=== PATIENT | female | born 1995 | race Caucasian/White ===

== ENCOUNTER 2023-07-08 06:41 | Emergency (ER) | payer OTHER, BC, SELFPAY ==
[2023-07-08 06:48] VITALS: BP 129/86; PULSE 87; RESP 18; TEMP 36.3; O2SAT 99; BMI 34.2
[2023-07-08 07:11] LABS: Appearance Urine Cloudy (Clear); Bilirubin Urine Negative (Negative); Blood Urine 3+ (Negative); Color Urine Dark yellow (Yellow); Glucose Urine Negative (Negative); Ketones Urine Negative (Negative); Leukocyte Esterase Urine Negative (Negative); Nitrite Urine Negative (Negative); Protein Urine Negative (Negative); Specific Gravity Urine >= 1.030 (1.000-1.030); Urobilinogen Urine 0.2 (0.2-1.0)
--- NOTE | 2023-07-08 07:19 | CT_ITS ---
Final Report Patient: LAVONNE AVILA Facility:?[facility] Patient ID:?[id number] Site Patient ID:?[id number] Site :?[id number] Study:?CT Abdomen/Pelvis W/ 110CC ISOVUE 370-07/08/2023 7:57:37 AM Ordering Physician:JONAS Final Report: INDICATION: Right lower quadrant abdominal pain COMPARISON: None TECHNIQUE: CT examination of the abdomen and pelvis was performed following the uneventful intravenous administration of 110 cc of Isovue 370. Thin section axial images were obtained from the lung bases through the pubic symphysis. Oral contrast was not administered. Please note that all CT scans at this facility use dose modulation, iterative reconstruction, and/or weight-based dosing when appropriate to reduce radiation dose to as low as reasonably achievable. FINDINGS: LUNG BASES: The lung bases as visualized appear normal.The heart size is normal at the lung bases. LIVER/BILIARY SYSTEM:The liver is normal in size and configuration. There is no focal mass and there is no intra- or extra hepatic biliary ductal dilatation.Hepatic steatosis. Normal-appearing gallbladder ADRENALS: Normal KIDNEYS, URETERS and BLADDER:Normal-sized kidneys. No intrarenal calculi. No hydronephrosis or hydroureter. Pelvic calcifications are noted bilaterally. They are probably phleboliths. There is a solitary on the right that is very near the ureter. This measures about 2.5 millimeters. While I do not believe this is in the ureter, correlate with urinalysis. SPLEEN:Normal appearance. PANCREAS: Appears normal. RETROPERITONEUM and MESENTERY: There is no mass, adenopathy or aortic aneurysm. GASTROINTESTINAL SYSTEM: There is no evidence of diverticulitis, colitis, mechanical obstruction, or appendicitis. The small bowel as visualized appears normal.The appendix is well seen and appears normal. PELVIS: No mass, adenopathy or free fluid.No adnexal mass OSSEOUS STRUCTURES and ABDOMINAL WALL: There is an age-appropriate appearance of the osseous structures.No significant abdominal wall defect. OTHER: No free fluid or free air. IMPRESSION: 1. Pelvic calcifications probably phleboliths. There is a 2.5 millimeter calcification in the right pelvis which is probably not within the as described above. 2. The appendix is well seen and appears normal. 3. No adnexal mass. 4. Hepatic steatosis Please note that all CT scans at this facility use dose modulation, iterative reconstruction, and/or weight-based dosing when appropriate to reduce radiation dose to as low as reasonably achievable. Dictated by Raymundo Cancino MD @ 07/08/2023 8:09:53 AM (Electronic Signature)
[2023-07-08 07:31] LABS: Lactate* 0.9 mmol/L (0.5-1.9)
[2023-07-08 07:32] LABS: Basophils Percent Auto 0.3 % (0.0-3.0); Eosinophils Percent Auto 0.7 % (0.0-7.0); Hematocrit 39.6 % (33.0-51.0); Hemoglobin* 12.7 gm/dL (12.0-16.0); Immature Granulocytes Pct Auto 0.2 %; Lymphocytes Percent Auto 11.6 % (20-44); Mean Corpuscular HGB Conc 32 gm/dL (32-36); Mean Corpuscular Hemoglobin 28 pg (26-34); Mean Corpuscular Volume 86 fL (80-100); Monocytes Percent Auto 6.4 % (0.0-11.0); Neutrophils Percent Auto 80.8 % (42.0-72.0); Platelet Count* 379 K/uL (140-440); RDW Coefficient of Variation % 13.3 % (11.5-15.5); Red Blood Count 4.61 m/uL (4.00-5.20); White Blood Count* 11.68 K/uL (4.50-11.00)
[2023-07-08 07:32] LABS: Bacteria Urine Few; RBC Urine 50-100 (0-2); Squamous Epithelial Cell Urine Moderate (None-Few); WBC Urine 0-2 (0-5)
[2023-07-08 07:35] LABS: Slide Review Reflex No
[2023-07-08 07:42] LABS: Ur HCG Qualitative* Negative (Negative)
[2023-07-08 07:47] LABS: Albumin* 4.4 g/dL (3.3-5.0); Chloride* 107 mmol/L (96-114)
[2023-07-08 07:48] LABS: Potassium* 4.2 mmol/L (3.6-5.1); Sodium* 138 mmol/L (135-149)
[2023-07-08 07:50] LABS: Creatinine* 0.8 mg/dL (0.5-1.5); Est. Creatinine Clearance* 104.67; Estimated Glomerular Filt Rate 102 ml/min
[2023-07-08 07:51] LABS: Alanine Aminotransferase* 20 U/L (4-35); Alkaline Phosphatase* 69 U/L (40-150); Anion Gap 7 mEq/L (7-15); Aspartate Amino Transferase* 40 U/L (12-35); Blood Urea Nitrogen* 13 mg/dL (5-24); Calcium* 9.1 mg/dL (8.4-10.6); Carbon Dioxide* 24 mmol/L (20-32); Glucose* 112 mg/dL (60-115); Lipase* 63 U/L (23-300); Total Protein* 7.7 g/dL (6.0-8.3)
[2023-07-08 07:53] LABS: C Reactive Protein* 1.3 mg/dL (0.5-1.0)
--- NOTE | 2023-07-08 07:55 | ED_ITS ---
HPI - Abdominal Pain General Chief Complaint: Abdominal Pain <Esha Camargo MD - Last Filed: 07/11/23 23:57> Stated Complaint: R side abdominal pain <Esha Camargo MD - Last Filed: 07/11/23 23:57> Time Seen by Provider: 07/08/23 07:05 <Esha Camargo MD - Last Filed: 07/11/23 23:57> Source: patient <Esha Camargo MD - Last Filed: 07/11/23 23:57> Mode of arrival: ambulatory <Esha Camargo MD - Last Filed: 07/11/23 23:57> Limitations: no limitations <Esha Camargo MD - Last Filed: 07/11/23 23:57> History of Present Illness HPI narrative: 27-year-old female presents the emergency department with right lower quadrant abdominal pain, near the inguinal region. This is been present for the past 3-4 hours. Comes in waves. Pain is associated with loose stools, crampy in nature. Does not radiate. Tried taking Tylenol at 2:00 a.m. when the pain awoke her from sleep, 1000 mg. Did not seem to improve her symptoms. Pain is becoming more persistent, accompanied by nausea and sweating but no vomiting. She is on her menstrual cycle, wonders if this could be related to her endometriosis pain. No history of hernias. No prior history of kidney stones but does have a family history of kidney stones in her father. She has a history of PCOS but he has never required any type of drainage or surgery for large ovarian cysts. No recent pelvic ultrasound or imaging but did have a laparoscopic procedure to reduce endometriosis in the last few years. No abdominal trauma, no rectal bleeding. No fever. Denies a prior history of similar symptoms. She is on her period, so will be difficult to tell if she has any hematuria. No flank pain. Past medical history notable for PCOS, endometriosis. Her surgical history is notable for endometriosis surgery but she still has all of her remaining pelvic organs. Just had a facial surgery at age 1. Only long-term medication is metformin. Nonsmoker. ROS notable for the abdominal symptoms as described above, otherwise denies times 12 systems. <Esha Camargo MD - Last Filed: 07/11/23 23:57> Related Data Home Medications: Home Medications Medication Instructions Recorded Confirmed cabergoline 0.5 mg tablet 0.5 mg PO 01/17/23 01/17/23 metformin 500 mg tablet,extended 2,000 mg PO QPM 01/17/23 01/17/23 release 24 hr naltrexone 50 mg tablet 25 mg PO QPM 01/17/23 01/17/23 progesterone micronized 100 mg 25 mg PO QAM 01/17/23 01/17/23 capsule Previous Rx's Medication Instructions Recorded ketorolac 10 mg tablet 10 mg PO Q6H PRN pain 5 days #20 07/08/23 tabs <Esha Camargo MD - Last Filed: 07/11/23 23:57> Allergies/Adverse Reactions: Allergies Allergy/AdvReac Type Severity Reaction Status Date / Time No Known Drug Allergies Allergy Verified 07/08/23 07:52 <Esha Camargo MD - Last Filed: 07/11/23 23:57> PFS PFSH Social History: Social History Smoking Status: Never smoker How often do you have a drink containing alcohol: never AUDIT-C Alcohol total score: 0 Non-prescribed substance use: denies use <Esha Camargo MD - Last Filed: 07/11/23 23:57> Exam Const: Vital Signs, click to edit/add: Vital Signs - 24 hr 07/08/23 06:48 07/08/23 09:27 Temperature 97.3 F L Pulse Rate [Left P ulse Oximeter] 87 82 Respiratory Rate 18 18 Blood Pressure [Ri ght Upper Arm] 129/86 118/74 Pulse Oximetry 99 100 Oxygen Delivery Me thod Room Air Room Air <Esha Camargo MD - Last Filed: 07/11/23 23:57> Vital Signs, click to edit/add: Vital Signs - 24 hr 07/08/23 06:48 07/08/23 09:27 Temperature 97.3 F L Pulse Rate [Left P ulse Oximeter] 87 82 Respiratory Rate 18 18 Blood Pressure [Ri ght Upper Arm] 129/86 118/74 Pulse Oximetry 99 100 Oxygen Delivery Me thod Room Air Room Air <Jennifer Garza MD - Last Filed: 07/08/23 09:45> Documenting provider has reviewed patient's vital signs: yes <Esha Camargo MD - Last Filed: 07/11/23 23:57> Common normals: no apparent distress and alert <Esha Camargo MD - Last Filed: 07/11/23 23:57> General appearance: cooperative and well kempt <Esha Camargo MD - Last Filed: 07/11/23 23:57> Other: Appears mildly uncomfortable but very cooperative and friendly <Esha Camargo MD - Last Filed: 07/11/23 23:57> HENMT: Common normals: normocephalic <Esha Camargo MD - Last Filed: 07/11/23 23:57> Head and scalp: normocephalic <Esha Camargo MD - Last Filed: 07/11/23 23:57> Face and sinus: normal facial exam <Esha Camargo MD - Last Filed: 07/11/23 23:57> Mouth: oral and palatal mucosa normal <Esha Camargo MD - Last Filed: 07/11/23 23:57> Throat: posterior oropharynx normal <Esha Camargo MD - Last Filed: 23:57> Eye: Common normals: conjunctivae normal <Esha Camargo MD - Last Filed: 07/11/23 23:57> General eye: normal appearance of both eyes <Esha Camargo MD - Last Filed: 07/11/23 23:57> Conjunctiva: conjunctiva(e) normal <Esha Camargo MD - Last Filed: 07/11/23 23:57> Neck & C-Spine: Common normals: no lymphadenopathy <Esha Camargo MD - Last Filed: 07/11/23 23:57> General: normal visual inspection <Esha Camargo MD - Last Filed: 07/11/23 23:57> Resp: Common normals: normal respiratory effort, no use of accessory muscles and clear to auscultation bilaterally <Esha Camargo MD - Last Filed: 07/11/23 23:57> Effort & inspection: able to speak in complete sentences <Esha Camargo MD - Last Filed: 07/11/23 23:57> Auscultation: clear to auscultation bilaterally <Esha Camargo MD - Last Filed: 07/11/23 23:57> Cardio: Common normals: regular rate, regular rhythm, S1 normal heart sound, S2 normal heart sound and no murmurs <Esha Camargo MD - Last Filed: 07/11/23 23:57> Rate: regular rate <Esha Camargo MD - Last Filed: 07/11/23 23:57> Rhythm: regular rhythm <Esha Camargo MD - Last Filed: 07/11/23 23:57> Heart sounds: S1 normal and S2 normal <Esha Camargo MD - Last Filed: 07/11/23 23:57> GI: Common normals: Normal to inspection, nondistended, normoactive bowel sounds present, soft to palpation, no hepatosplenomegaly and no masses <Esha Camargo MD - Last Filed: 07/11/23 23:57> Palpation: soft and no hepatosplenomegaly <Esha Camargo MD - Last Filed: 07/11/23 23:57> Other: Tender palpation of the right lower quadrant but very right lower pelvic area. I do not detect any inguinal or femoral hernia. No rebound tenderness, guarding or mass. <Esha Camargo MD - Last Filed: 07/11/23 23:57> : Common normals: no CVA tenderness <MD Hansa Mina Last Filed: 07/11/23 23:57> Bladder/kidney exam: no CVA tenderness <Esha Camargo MD - Last Filed: 07/11/23 23:57> Back & Pelvis: Common normals: no CVA tenderness <Esha Camargo MD - Last Filed: 07/11/23 23:57> Extremity: Common normals: normal to inspection and normal capillary refill <Esha Camargo MD - Last Filed: 07/11/23 23:57> Neuro: Sensorium/orientation: alert <Esha Camargo MD - Last Filed: 07/11/23 23:57> Speech: speech normal <Esha Camargo MD - Last Filed: 07/11/23 23:57> Gait (neuro): normal gait <Esha Camargo MD - Last Filed: 07/11/23 23:57> Motor exam: strength 5/5 throughout <Esha Camargo MD - Last Filed: 07/11/23 23:57> Psych: Common normals: speech normal <MD Hansa Mina Last Filed: 07/11/23 23:57> Appearance: well kempt <Esha Camargo MD - Last Filed: 07/11/23 23:57> Attitude: engaged <Esha Camargo MD - Last Filed: 07/11/23 23:57> Activity/motor behavior: appropriate eye contact <Esha Camargo MD - Last Filed: 07/11/23 23:57> Speech: normal speech <Esha Camargo MD - Last Filed: 07/11/23 23:57> Insight: insight good <MD Hansa Mina Last Filed: 07/11/23 23:57> Judgement: judgment good <Esha Camargo MD - Last Filed: 07/11/23 23:57 > Skin: Common normals: no rashes or lesions noted <MD Hansa Mina Last Filed: 07/11/23 23:57> General skin exam: no rashes or lesions noted <Esha Camargo MD - Last Filed: 07/11/23 23:57> Course Course ED Course: Differential diagnosis including appendicitis, hernia, colitis, ovarian pathology, endometriosis. Most likely differential diagnosis is a right-sided UVJ stone based on presentation. No features a fever, tachycardia or hypotension. Counseled patient that her urinalysis will contain blood in this will make interpretation a little bit more difficult. For stone, we do prefer to do the scan without contrast but since her pain is so low and there are many other things I would want to look foreign would not want to risk duplicate radiation, I recommended that we do the scan with contrast, rationale discussed. Will place IV, she declines pain medication or nausea medication at this time, counseled that she can update the nurse's if she has changed her mind with that. I do recommend some basic labs and CT scan. Await findings. Will be handing over care to my in coming day shift partner. <Esha Camargo MD - Last Filed: 07/11/23 23:57> Reevaluation(s) Time of Reevaluation #1: 09:41 <Jennifer Garza MD - Last Filed: 07/08/23 09:45> Reevaluation #1: Reviewed CT report with patient. She does state there is a strong family history of kidney stones, her dad has had many. We really have no other etiology to explain her sudden onset of pain. I do not feel that she needs to proceed with ultrasound imaging at this time. She is aware to return if symptoms are worsening. We are going to treat clinically that this is potentially a kidney stone, her menstrual cycle is confounding the ability to get a meaningful urinalysis. We have reviewed use of oral Toradol for pain outpatient. <Jennifer Garza MD - Last Filed: 07/08/23 09:45> Vital Signs Vital signs: Initial Vital Signs Temperature 97.3 F L 07/08/23 06:48 Temperature Source Temporal Artery Scan 07/08/23 06:48 Pulse Rate 87 07/08/23 06:48 Pulse Rhythm Regular 07/08/23 06:48 Respiratory Rate 18 07/08/23 06:48 Blood Pressure 129/86 07/08/23 06:48 Blood Pressure Mean 100 07/08/23 06:48 Blood Pressure Position Sitting 07/08/23 06:48 Pulse Oximetry 99 07/08/23 06:48 Oxygen Delivery Method Room Air 07/08/23 06:48 Vital Signs Temperature 97.3 F L 07/08/23 06:48 Pulse Rate 87 07/08/23 06:48 Respiratory Rate 18 07/08/23 06:48 Blood Pressure 129/86 07/08/23 06:48 Pulse Oximetry 99 07/08/23 06:48 Oxygen Delivery Method Room Air 07/08/23 06:48 Temperature 97.3 F L 07/08/23 06:48 Pulse Rate 82 07/08/23 09:27 Respiratory Rate 18 07/08/23 09:27 Blood Pressure 118/74 07/08/23 09:27 Pulse Oximetry 100 07/08/23 09:27 Oxygen Delivery Method Room Air 07/08/23 09:27 <Esha Camargo MD - Last Filed: 07/11/23 23:57> Initial Vital Signs Temperature 97.3 F L 07/08/23 06:48 Temperature Source Temporal Artery Scan 07/08/23 06:48 Pulse Rate 87 07/08/23 06:48 Pulse Rhythm Regular 07/08/23 06:48 Respiratory Rate 18 07/08/23 06:48 Blood Pressure 129/86 07/08/23 06:48 Blood Pressure Mean 100 07/08/23 06:48 Blood Pressure Position Sitting 07/08/23 06:48 Pulse Oximetry 99 07/08/23 06:48 Oxygen Delivery Method Room Air 07/08/23 06:48 Vital Signs Temperature 97.3 F L 07/08/23 06:48 Pulse Rate 87 07/08/23 06:48 Respiratory Rate 18 07/08/23 06:48 Blood Pressure 129/86 07/08/23 06:48 Pulse Oximetry 99 07/08/23 06:48 Oxygen Delivery Method Room Air 07/08/23 06:48 Temperature 97.3 F L 07/08/23 06:48 Pulse Rate 82 07/08/23 09:27 Respiratory Rate 18 07/08/23 09:27 Blood Pressure 118/74 07/08/23 09:27 Pulse Oximetry 100 07/08/23 09:27 Oxygen Delivery Method Room Air 07/08/23 09:27 <Jennifer Garza MD - Last Filed: 07/08/23 09:45> MDM - Abdominal Pain Lab Data Attestation: I reviewed the patient's lab results. <Jennifer Garza MD - Last Filed: 07/08/23 09:45> Labs: Lab Results 07/08/23 07/08/23 07/08/23 Range/Units 07:00 07:00 07:00 WBC (4.50-11.00) K/uL RBC (4.00-5.20) m/uL Hgb (12.0-16.0) gm/dL Hct (33.0-51.0) % MCV (80-100) fL MCH (26-34) pg MCHC (32-36) gm/dL RDW Coeff of [place] (11.5-15.5) % Plt Count (140-440) K/uL Neut % (Auto) (42.0-72.0) % Lymph % (Auto) (20-44) % [place] % (Auto) (0.0-11.0) % Eos % (Auto) (0.0-7.0) % Baso % (Auto) (0.0-3.0) % Neut # (Auto) (1.7-7.0) K/uL Lymph # (Auto) (0.90-2.90) K/uL [place] # (Auto) (0.00-0.90) K/UL Eos # (Auto) (0.00-0.50) K/uL Baso # (Auto) (0.00-0.30) K/uL Abs Immat Gran (auto) (0.00-0.30) K/uL Imm/Tot Granulo (auto) % Sodium (135-149) mmol/L Potassium (3.6-5.1) mmol/L Chloride (96-114) mmol/L Carbon Dioxide (20-32) mmol/L Anion Gap (7-15) mEq/L BUN (5-24) mg/dL Creatinine (0.5-1.5) mg/dL Estimated Creat Clear Estimated GFR ml/min Glucose (60-115) mg/dL Lactate (0.5-1.9) mmol/L Calcium (8.4-10.6) mg/dL Total Bilirubin (0.1-1.5) mg/dL AST (12-35) U/L ALT (4-35) U/L Alkaline Phosphatase (40-150) U/L C-Reactive Protein (0.5-1.0) mg/dL Total Protein (6.0-8.3) g/dL Albumin (3.3-5.0) g/dL Lipase (23-300) U/L Urine Color Dark yellow Cancelled (Yellow) Urine Appearance Cloudy A Cancelled (Clear) Urine pH 6.0 (5.0-8.5) Ur Specific [place] (1.000-1.030) Urine Protein (Negative) Urine Glucose (UA) (Negative) Urine Ketones (Negative) Urine Blood (Negative) Urine Nitrite (Negative) Urine Bilirubin (Negative) Urine Urobilinogen (0.2-1.0) Ur Leukocyte Esterase (Negative) Urine RBC (0-2) Urine WBC (0-5) Urine WBC Clumps Ur Squamous Epith Cells (None-Few) [place] Biurate Crystals Calcium Carbonate Cryst Calcium Phosphate Cryst Calcium Oxalate Crystal Cystine Crystals Uric Acid Crystals Triple Phos Crystals Sulfur Crystals Cholesterol Crystals Tyrosine Crystals Hippuric Acid Crystals Amorphous Sediment Other Sediment Urine Bacteria (None) Fatty Casts Hyaline Casts Fine Granular Casts Coarse Granular Casts Waxy Casts RBC Casts WBC Casts Other Casts Urine Starch Urine Mucus Urine Trichomonas Urine Yeast Urine HCG, Qual (Negative) 07/08/23 07/08/23 07/08/23 Range/Units 07:00 07:00 07:00 WBC (4.50-11.00) K/uL RBC (4.00-5.20) m/uL Hgb (12.0-16.0) gm/dL Hct (33.0-51.0) % MCV (80-100) fL MCH (26-34) pg MCHC (32-36) gm/dL RDW Coeff of [place]aseli (11.5-15.5) % Plt Count (140-440) K/uL Neut % (Auto) (42.0-72.0) % Lymph % (Auto) (20-44) % [place] % (Auto) (0.0-11.0) % Eos % (Auto) (0.0-7.0) % Baso % (Auto) (0.0-3.0) % Neut # (Auto) (1.7-7.0) K/uL Lymph # (Auto) (0.90-2.90) K/uL [place] # (Auto) (0.00-0.90) K/UL Eos # (Auto) (0.00-0.50) K/uL Baso # (Auto) (0.00-0.30) K/uL Abs Immat Gran (auto) (0.00-0.30) K/uL Imm/Tot Granulo (auto) % Sodium (135-149) mmol/L Potassium (3.6-5.1) mmol/L Chloride (96-114) mmol/L Carbon Dioxide (20-32) mmol/L Anion Gap (7-15) mEq/L BUN (5-24) mg/dL Creatinine (0.5-1.5) mg/dL Estimated Creat Clear Estimated GFR ml/min Glucose (60-115) mg/dL Lactate (0.5-1.9) mmol/L Calcium (8.4-10.6) mg/dL Total Bilirubin (0.1-1.5) mg/dL AST (12-35) U/L ALT (4-35) U/L Alkaline Phosphatase (40-150) U/L C-Reactive Protein (0.5-1.0) mg/dL Total Protein (6.0-8.3) g/dL Albumin (3.3-5.0) g/dL Lipase (23-300) U/L Urine Color (Yellow) Urine Appearance (Clear) Urine pH Cancelled (5.0-8.5) Ur Specific [place] >= 1.030 Cancelled (1.000-1.030) Urine Protein Negative Cancelled (Negative) Urine Glucose (UA) Negative (Negative) Urine Ketones (Negative) Urine Blood (Negative) Urine Nitrite (Negative) Urine Bilirubin (Negative) Urine Urobilinogen (0.2-1.0) Ur Leukocyte Esterase (Negative) Urine RBC (0-2) Urine WBC (0-5) Urine WBC Clumps Ur Squamous Epith Cells (None-Few) [place] Biurate Crystals Calcium Carbonate Cryst Calcium Phosphate Cryst Calcium Oxalate Crystal Cystine Crystals Uric Acid Crystals Triple Phos Crystals Sulfur Crystals Cholesterol Crystals Tyrosine Crystals Hippuric Acid Crystals Amorphous Sediment Other Sediment Urine Bacteria (None) Fatty Casts Hyaline Casts Fine Granular Casts Coarse Granular Casts Waxy Casts RBC Casts WBC Casts Other Casts Urine Starch Urine Mucus Urine Trichomonas Urine Yeast Urine HCG, Qual (Negative) 07/08/23 07/08/23 07/08/23 Range/Units 07:00 07:00 07:00 WBC (4.50-11.00) K/uL RBC (4.00-5.20) m/uL Hgb (12.0-16.0) gm/dL Hct (33.0-51.0) % MCV (80-100) fL MCH (26-34) pg MCHC (32-36) gm/dL RDW Coeff of [place] (11.5-15.5) % Plt Count (140-440) K/uL Neut % (Auto) (42.0-72.0) % Lymph % (Auto) (20-44) % [place] % (Auto) (0.0-11.0) % Eos % (Auto) (0.0-7.0) % Baso % (Auto) (0.0-3.0) % Neut # (Auto) (1.7-7.0) K/uL Lymph # (Auto) (0.90-2.90) K/uL [place] # (Auto) (0.00-0.90) K/UL Eos # (Auto) (0.00-0.50) K/uL Baso # (Auto) (0.00-0.30) K/uL Abs Immat Gran (auto) (0.00-0.30) K/uL Imm/Tot Granulo (auto) % Sodium (135-149) mmol/L Potassium (3.6-5.1) mmol/L Chloride (96-114) mmol/L Carbon Dioxide (20-32) mmol/L Anion Gap (7-15) mEq/L BUN (5-24) mg/dL Creatinine (0.5-1.5) mg/dL Estimated Creat Clear Estimated GFR ml/min Glucose (60-115) mg/dL Lactate (0.5-1.9) mmol/L Calcium (8.4-10.6) mg/dL Total Bilirubin (0.1-1.5) mg/dL AST (12-35) U/L ALT (4-35) U/L Alkaline Phosphatase (40-150) U/L C-Reactive Protein (0.5-1.0) mg/dL Total Protein (6.0-8.3) g/dL Albumin (3.3-5.0) g/dL Lipase (23-300) U/L Urine Color (Yellow) Urine Appearance (Clear) Urine pH (5.0-8.5) Ur Specific [place] (1.000-1.030) Urine Protein (Negative) Urine Glucose (UA) Cancelled (Negative) Urine Ketones Negative Cancelled (Negative) Urine Blood 3+ A Cancelled (Negative) Urine Nitrite Negative (Negative) Urine Bilirubin (Negative) Urine Urobilinogen (0.2-1.0) Ur Leukocyte Esterase (Negative) Urine RBC (0-2) Urine WBC (0-5) Urine WBC Clumps Ur Squamous Epith Cells (None-Few) [place] Biurate Crystals Calcium Carbonate Cryst Calcium Phosphate Cryst Calcium Oxalate Crystal Cystine Crystals Uric Acid Crystals Triple Phos Crystals Sulfur Crystals Cholesterol Crystals Tyrosine Crystals Hippuric Acid Crystals Amorphous Sediment Other Sediment Urine Bacteria (None) Fatty Casts Hyaline Casts Fine Granular Casts Coarse Granular Casts Waxy Casts RBC Casts WBC Casts Other Casts Urine Starch Urine Mucus Urine Trichomonas Urine Yeast Urine HCG, Qual (Negative) 07/08/23 07/08/23 07/08/23 Range/Units 07:00 07:00 07:00 WBC (4.50-11.00) K/uL RBC (4.00-5.20) m/uL Hgb (12.0-16.0) gm/dL Hct (33.0-51.0) % MCV (80-100) fL MCH (26-34) pg MCHC (32-36) gm/dL RDW Coeff of [place]eli (11.5-15.5) % Plt Count (140-440) K/uL Neut % (Auto) (42.0-72.0) % Lymph % (Auto) (20-44) % [place] % (Auto) (0.0-11.0) % Eos % (Auto) (0.0-7.0) % Baso % (Auto) (0.0-3.0) % Neut # (Auto) (1.7-7.0) K/uL Lymph # (Auto) (0.90-2.90) K/uL [place] # (Auto) (0.00-0.90) K/UL Eos # (Auto) (0.00-0.50) K/uL Baso # (Auto) (0.00-0.30) K/uL Abs Immat Gran (auto) (0.00-0.30) K/uL Imm/Tot Granulo (auto) % Sodium (135-149) mmol/L Potassium (3.6-5.1) mmol/L Chloride (96-114) mmol/L Carbon Dioxide (20-32) mmol/L Anion Gap (7-15) mEq/L BUN (5-24) mg/dL Creatinine (0.5-1.5) mg/dL Estimated Creat Clear Estimated GFR ml/min Glucose (60-115) mg/dL Lactate (0.5-1.9) mmol/L Calcium (8.4-10.6) mg/dL Total Bilirubin (0.1-1.5) mg/dL AST (12-35) U/L ALT (4-35) U/L Alkaline Phosphatase (40-150) U/L C-Reactive Protein (0.5-1.0) mg/dL Total Protein (6.0-8.3) g/dL Albumin (3.3-5.0) g/dL Lipase (23-300) U/L Urine Color (Yellow) Urine Appearance (Clear) Urine pH (5.0-8.5) Ur Specific [place] (1.000-1.030) Urine Protein (Negative) Urine Glucose (UA) (Negative) Urine Ketones (Negative) Urine Blood (Negative) Urine Nitrite Cancelled (Negative) Urine Bilirubin Negative Cancelled (Negative) Urine Urobilinogen 0.2 Cancelled (0.2-1.0) Ur Leukocyte Esterase Negative (Negative) Urine RBC (0-2) Urine WBC (0-5) Urine WBC Clumps Ur Squamous Epith Cells (None-Few) [place] Biurate Crystals Calcium Carbonate Cryst Calcium Phosphate Cryst Calcium Oxalate Crystal Cystine Crystals Uric Acid Crystals Triple Phos Crystals Sulfur Crystals Cholesterol Crystals Tyrosine Crystals Hippuric Acid Crystals Amorphous Sediment Other Sediment Urine Bacteria (None) Fatty Casts Hyaline Casts Fine Granular Casts Coarse Granular Casts Waxy Casts RBC Casts WBC Casts Other Casts Urine Starch Urine Mucus Urine Trichomonas Urine Yeast Urine HCG, Qual (Negative) 07/08/23 07/08/23 07/08/23 Range/Units 07:00 07:00 07:00 WBC (4.50-11.00) K/uL RBC (4.00-5.20) m/uL Hgb (12.0-16.0) gm/dL Hct (33.0-51.0) % MCV (80-100) fL MCH (26-34) pg MCHC (32-36) gm/dL RDW Coeff of [place] (11.5-15.5) % Plt Count (140-440) K/uL Neut % (Auto) (42.0-72.0) % Lymph % (Auto) (20-44) % [place] % (Auto) (0.0-11.0) % Eos % (Auto) (0.0-7.0) % Baso % (Auto) (0.0-3.0) % Neut # (Auto) (1.7-7.0) K/uL Lymph # (Auto) (0.90-2.90) K/uL [place] # (Auto) (0.00-0.90) K/UL Eos # (Auto) (0.00-0.50) K/uL Baso # (Auto) (0.00-0.30) K/uL Abs Immat Gran (auto) (0.00-0.30) K/uL Imm/Tot Granulo (auto) % Sodium (135-149) mmol/L Potassium (3.6-5.1) mmol/L Chloride (96-114) mmol/L Carbon Dioxide (20-32) mmol/L Anion Gap (7-15) mEq/L BUN (5-24) mg/dL Creatinine (0.5-1.5) mg/dL Estimated Creat Clear Estimated GFR ml/min Glucose (60-115) mg/dL Lactate (0.5-1.9) mmol/L Calcium (8.4-10.6) mg/dL Total Bilirubin (0.1-1.5) mg/dL AST (12-35) U/L ALT (4-35) U/L Alkaline Phosphatase (40-150) U/L C-Reactive Protein (0.5-1.0) mg/dL Total Protein (6.0-8.3) g/dL Albumin (3.3-5.0) g/dL Lipase (23-300) U/L Urine Color (Yellow) Urine Appearance (Clear) Urine pH (5.0-8.5) Ur Specific [place] (1.000-1.030) Urine Protein (Negative) Urine Glucose (UA) (Negative) Urine Ketones (Negative) Urine Blood (Negative) Urine Nitrite (Negative) Urine Bilirubin (Negative) Urine Urobilinogen (0.2-1.0) Ur Leukocyte Esterase Cancelled (Negative) Urine RBC 50-100 A Cancelled (0-2) Urine WBC 0-2 Cancelled (0-5) Urine WBC Clumps Cancelled Ur Squamous Epith Cells Moderate A (None-Few) [place] Biurate Crystals Calcium Carbonate Cryst Calcium Phosphate Cryst Calcium Oxalate Crystal Cystine Crystals Uric Acid Crystals Triple Phos Crystals Sulfur Crystals Cholesterol Crystals Tyrosine Crystals Hippuric Acid Crystals Amorphous Sediment Other Sediment Urine Bacteria (None) Fatty Casts Hyaline Casts Fine Granular Casts Coarse Granular Casts Waxy Casts RBC Casts WBC Casts Other Casts Urine Starch Urine Mucus Urine Trichomonas Urine Yeast Urine HCG, Qual (Negative) 07/08/23 07/08/23 07/08/23 Range/Units 07:00 07:00 07:25 WBC 11.68 H (4.50-11.00) K/uL RBC 4.61 (4.00-5.20) m/uL Hgb 12.7 (12.0-16.0) gm/dL Hct 39.6 (33.0-51.0) % MCV 86 (80-100) fL MCH 28 (26-34) pg MCHC 32 (32-36) gm/dL RDW Coeff of [place] 13.3 (11.5-15.5) % Plt Count 379 (140-440) K/uL Neut % (Auto) 80.8 H (42.0-72.0) % Lymph % (Auto) 11.6 L (20-44) % [place] % (Auto) 6.4 (0.0-11.0) % Eos % (Auto) 0.7 (0.0-7.0) % Baso % (Auto) 0.3 (0.0-3.0) % Neut # (Auto) 9.40 H (1.7-7.0) K/uL Lymph # (Auto) 1.40 (0.90-2.90) K/uL [place] # (Auto) 0.70 (0.00-0.90) K/UL Eos # (Auto) 0.10 (0.00-0.50) K/uL Baso # (Auto) 0.00 (0.00-0.30) K/uL Abs Immat Gran (auto) 0.00 (0.00-0.30) K/uL Imm/Tot Granulo (auto) 0.2 % Sodium 138 (135-149) mmol/L Potassium 4.2 (3.6-5.1) mmol/L Chloride 107 (96-114) mmol/L Carbon Dioxide 24 (20-32) mmol/L Anion Gap 7 (7-15) mEq/L BUN 13 (5-24) mg/dL Creatinine 0.8 (0.5-1.5) mg/dL Estimated Creat Clear 104.67 Estimated GFR 102 ml/min Glucose 112 (60-115) mg/dL Lactate 0.9 (0.5-1.9) mmol/L Calcium 9.1 (8.4-10.6) mg/dL Total Bilirubin 1.0 (0.1-1.5) mg/dL AST 40 H (12-35) U/L ALT 20 (4-35) U/L Alkaline Phosphatase 69 (40-150) U/L C-Reactive Protein 1.3 H (0.5-1.0) mg/dL Total Protein 7.7 (6.0-8.3) g/dL Albumin 4.4 (3.3-5.0) g/dL Lipase 63 (23-300) U/L Urine Color (Yellow) Urine Appearance (Clear) Urine pH (5.0-8.5) Ur Specific [place] (1.000-1.030) Urine Protein (Negative) Urine Glucose (UA) (Negative) Urine Ketones (Negative) Urine Blood (Negative) Urine Nitrite (Negative) Urine Bilirubin (Negative) Urine Urobilinogen (0.2-1.0) Ur Leukocyte Esterase (Negative) Urine RBC (0-2) Urine WBC (0-5) Urine WBC Clumps Ur Squamous Epith Cells Cancelled (None-Few) [place] Biurate Crystals Cancelled Calcium Carbonate Cryst Cancelled Calcium Phosphate Cryst Cancelled Calcium Oxalate Crystal Cancelled Cystine Crystals Cancelled Uric Acid Crystals Cancelled Triple Phos Crystals Cancelled Sulfur Crystals Cancelled Cholesterol Crystals Cancelled Tyrosine Crystals Cancelled Hippuric Acid Crystals Cancelled Amorphous Sediment Cancelled Other Sediment Cancelled Urine Bacteria Few A Cancelled (None) Fatty Casts Cancelled Hyaline Casts Cancelled Fine Granular Casts Cancelled Coarse Granular Casts Cancelled Waxy Casts Cancelled RBC Casts Cancelled WBC Casts Cancelled Other Casts Cancelled Urine Starch Cancelled Urine Mucus Cancelled Urine Trichomonas Cancelled Urine Yeast Cancelled Urine HCG, Qual Negative (Negative) <Esha Camargo MD - Last Filed: 07/11/23 23:57> Lab Results 07/08/23 07/08/23 07/08/23 Range/Units 07:00 07:00 07:00 WBC (4.50-11.00) K/uL RBC (4.00-5.20) m/uL Hgb (12.0-16.0) gm/dL Hct (33.0-51.0) % MCV (80-100) fL MCH (26-34) pg MCHC (32-36) gm/dL RDW Coeff of Araseli (11.5-15.5) % Plt Count (140-440) K/uL Neut % (Auto) (42.0-72.0) % Lymph % (Auto) (20-44) % [place] % (Auto) (0.0-11.0) % Eos % (Auto) (0.0-7.0) % Baso % (Auto) (0.0-3.0) % Neut # (Auto) (1.7-7.0) K/uL Lymph # (Auto) (0.90-2.90) K/uL [place] # (Auto) (0.00-0.90) K/UL Eos # (Auto) (0.00-0.50) K/uL Baso # (Auto) (0.00-0.30) K/uL Abs Immat Gran (auto) (0.00-0.30) K/uL Imm/Tot Granulo (auto) % Sodium (135-149) mmol/L Potassium (3.6-5.1) mmol/L Chloride (96-114) mmol/L Carbon Dioxide (20-32) mmol/L Anion Gap (7-15) mEq/L BUN (5-24) mg/dL Creatinine (0.5-1.5) mg/dL Estimated Creat Clear Estimated GFR ml/min Glucose (60-115) mg/dL Lactate (0.5-1.9) mmol/L Calcium (8.4-10.6) mg/dL Total Bilirubin (0.1-1.5) mg/dL AST (12-35) U/L ALT (4-35) U/L Alkaline Phosphatase (40-150) U/L C-Reactive Protein (0.5-1.0) mg/dL Total Protein (6.0-8.3) g/dL Albumin (3.3-5.0) g/dL Lipase (23-300) U/L Urine Color Dark yellow Cancelled (Yellow) Urine Appearance Cloudy A Cancelled (Clear) Urine pH 6.0 (5.0-8.5) Ur Specific [place] (1.000-1.030) Urine Protein (Negative) Urine Glucose (UA) (Negative) Urine Ketones (Negative) Urine Blood (Negative) Urine Nitrite (Negative) Urine Bilirubin (Negative) Urine Urobilinogen (0.2-1.0) Ur Leukocyte Esterase (Negative) Urine RBC (0-2) Urine WBC (0-5) Urine WBC Clumps Ur Squamous Epith Cells (None-Few) [place] Biurate Crystals Calcium Carbonate Cryst Calcium Phosphate Cryst Calcium Oxalate Crystal Cystine Crystals Uric Acid Crystals Triple Phos Crystals Sulfur Crystals Cholesterol Crystals Tyrosine Crystals Hippuric Acid Crystals Amorphous Sediment Other Sediment Urine Bacteria (None) Fatty Casts Hyaline Casts Fine Granular Casts Coarse Granular Casts Waxy Casts RBC Casts WBC Casts Other Casts Urine Starch Urine Mucus Urine Trichomonas Urine Yeast Urine HCG, Qual (Negative) 07/08/23 07/08/23 07/08/23 Range/Units 07:00 07:00 07:00 WBC (4.50-11.00) K/uL RBC (4.00-5.20) m/uL Hgb (12.0-16.0) gm/dL Hct (33.0-51.0) % MCV (80-100) fL MCH (26-34) pg MCHC (32-36) gm/dL RDW Coeff of Araseli (11.5-15.5) % Plt Count (140-440) K/uL Neut % (Auto) (42.0-72.0) % Lymph % (Auto) (20-44) % [place] % (Auto) (0.0-11.0) % Eos % (Auto) (0.0-7.0) % Baso % (Auto) (0.0-3.0) % Neut # (Auto) (1.7-7.0) K/uL Lymph # (Auto) (0.90-2.90) K/uL [place] # (Auto) (0.00-0.90) K/UL Eos # (Auto) (0.00-0.50) K/uL Baso # (Auto) (0.00-0.30) K/uL Abs Immat Gran (auto) (0.00-0.30) K/uL Imm/Tot Granulo (auto) % Sodium (135-149) mmol/L Potassium (3.6-5.1) mmol/L Chloride (96-114) mmol/L Carbon Dioxide (20-32) mmol/L Anion Gap (7-15) mEq/L BUN (5-24) mg/dL Creatinine (0.5-1.5) mg/dL Estimated Creat Clear Estimated GFR ml/min Glucose (60-115) mg/dL Lactate (0.5-1.9) mmol/L Calcium (8.4-10.6) mg/dL Total Bilirubin (0.1-1.5) mg/dL AST (12-35) U/L ALT (4-35) U/L Alkaline Phosphatase (40-150) U/L C-Reactive Protein (0.5-1.0) mg/dL Total Protein (6.0-8.3) g/dL Albumin (3.3-5.0) g/dL Lipase (23-300) U/L Urine Color (Yellow) Urine Appearance (Clear) Urine pH Cancelled (5.0-8.5) Ur Specific [place] >= 1.030 Cancelled (1.000-1.030) Urine Protein Negative Cancelled (Negative) Urine Glucose (UA) Negative (Negative) Urine Ketones (Negative) Urine Blood (Negative) Urine Nitrite (Negative) Urine Bilirubin (Negative) Urine Urobilinogen (0.2-1.0) Ur Leukocyte Esterase (Negative) Urine RBC (0-2) Urine WBC (0-5) Urine WBC Clumps Ur Squamous Epith Cells (None-Few) [place] Biurate Crystals Calcium Carbonate Cryst Calcium Phosphate Cryst Calcium Oxalate Crystal Cystine Crystals Uric Acid Crystals Triple Phos Crystals Sulfur Crystals Cholesterol Crystals Tyrosine Crystals Hippuric Acid Crystals Amorphous Sediment Other Sediment Urine Bacteria (None) Fatty Casts Hyaline Casts Fine Granular Casts Coarse Granular Casts Waxy Casts RBC Casts WBC Casts Other Casts Urine Starch Urine Mucus Urine Trichomonas Urine Yeast Urine HCG, Qual (Negative) 07/08/23 07/08/23 07/08/23 Range/Units 07:00 07:00 07:00 WBC (4.50-11.00) K/uL RBC (4.00-5.20) m/uL Hgb (12.0-16.0) gm/dL Hct (33.0-51.0) % MCV (80-100) fL MCH (26-34) pg MCHC (32-36) gm/dL RDW Coeff of [place]eli (11.5-15.5) % Plt Count (140-440) K/uL Neut % (Auto) (42.0-72.0) % Lymph % (Auto) (20-44) % [place] % (Auto) (0.0-11.0) % Eos % (Auto) (0.0-7.0) % Baso % (Auto) (0.0-3.0) % Neut # (Auto) (1.7-7.0) K/uL Lymph # (Auto) (0.90-2.90) K/uL [place] # (Auto) (0.00-0.90) K/UL Eos # (Auto) (0.00-0.50) K/uL Baso # (Auto) (0.00-0.30) K/uL Abs Immat Gran (auto) (0.00-0.30) K/uL Imm/Tot Granulo (auto) % Sodium (135-149) mmol/L Potassium (3.6-5.1) mmol/L Chloride (96-114) mmol/L Carbon Dioxide (20-32) mmol/L Anion Gap (7-15) mEq/L BUN (5-24) mg/dL Creatinine (0.5-1.5) mg/dL Estimated Creat Clear Estimated GFR ml/min Glucose (60-115) mg/dL Lactate (0.5-1.9) mmol/L Calcium (8.4-10.6) mg/dL Total Bilirubin (0.1-1.5) mg/dL AST (12-35) U/L ALT (4-35) U/L Alkaline Phosphatase (40-150) U/L C-Reactive Protein (0.5-1.0) mg/dL Total Protein (6.0-8.3) g/dL Albumin (3.3-5.0) g/dL Lipase (23-300) U/L Urine Color (Yellow) Urine Appearance (Clear) Urine pH (5.0-8.5) Ur Specific [place] (1.000-1.030) Urine Protein (Negative) Urine Glucose (UA) Cancelled (Negative) Urine Ketones Negative Cancelled (Negative) Urine Blood 3+ A Cancelled (Negative) Urine Nitrite Negative (Negative) Urine Bilirubin (Negative) Urine Urobilinogen (0.2-1.0) Ur Leukocyte Esterase (Negative) Urine RBC (0-2) Urine WBC (0-5) Urine WBC Clumps Ur Squamous Epith Cells (None-Few) [place] Biurate Crystals Calcium Carbonate Cryst Calcium Phosphate Cryst Calcium Oxalate Crystal Cystine Crystals Uric Acid Crystals Triple Phos Crystals Sulfur Crystals Cholesterol Crystals Tyrosine Crystals Hippuric Acid Crystals Amorphous Sediment Other Sediment Urine Bacteria (None) Fatty Casts Hyaline Casts Fine Granular Casts Coarse Granular Casts Waxy Casts RBC Casts WBC Casts Other Casts Urine Starch Urine Mucus Urine Trichomonas Urine Yeast Urine HCG, Qual (Negative) 07/08/23 07/08/23 07/08/23 Range/Units 07:00 07:00 07:00 WBC (4.50-11.00) K/uL RBC (4.00-5.20) m/uL Hgb (12.0-16.0) gm/dL Hct (33.0-51.0) % MCV (80-100) fL MCH (26-34) pg MCHC (32-36) gm/dL RDW Coeff of [place]eli (11.5-15.5) % Plt Count (140-440) K/uL Neut % (Auto) (42.0-72.0) % Lymph % (Auto) (20-44) % [place] % (Auto) (0.0-11.0) % Eos % (Auto) (0.0-7.0) % Baso % (Auto) (0.0-3.0) % Neut # (Auto) (1.7-7.0) K/uL Lymph # (Auto) (0.90-2.90) K/uL [place] # (Auto) (0.00-0.90) K/UL Eos # (Auto) (0.00-0.50) K/uL Baso # (Auto) (0.00-0.30) K/uL Abs Immat Gran (auto) (0.00-0.30) K/uL Imm/Tot Granulo (auto) % Sodium (135-149) mmol/L Potassium (3.6-5.1) mmol/L Chloride (96-114) mmol/L Carbon Dioxide (20-32) mmol/L Anion Gap (7-15) mEq/L BUN (5-24) mg/dL Creatinine (0.5-1.5) mg/dL Estimated Creat Clear Estimated GFR ml/min Glucose (60-115) mg/dL Lactate (0.5-1.9) mmol/L Calcium (8.4-10.6) mg/dL Total Bilirubin (0.1-1.5) mg/dL AST (12-35) U/L ALT (4-35) U/L Alkaline Phosphatase (40-150) U/L C-Reactive Protein (0.5-1.0) mg/dL Total Protein (6.0-8.3) g/dL Albumin (3.3-5.0) g/dL Lipase (23-300) U/L Urine Color (Yellow) Urine Appearance (Clear) Urine pH (5.0-8.5) Ur Specific [place] (1.000-1.030) Urine Protein (Negative) Urine Glucose (UA) (Negative) Urine Ketones (Negative) Urine Blood (Negative) Urine Nitrite Cancelled (Negative) Urine Bilirubin Negative Cancelled (Negative) Urine Urobilinogen 0.2 Cancelled (0.2-1.0) Ur Leukocyte Esterase Negative (Negative) Urine RBC (0-2) Urine WBC (0-5) Urine WBC Clumps Ur Squamous Epith Cells (None-Few) [place] Biurate Crystals Calcium Carbonate Cryst Calcium Phosphate Cryst Calcium Oxalate Crystal Cystine Crystals Uric Acid Crystals Triple Phos Crystals Sulfur Crystals Cholesterol Crystals Tyrosine Crystals Hippuric Acid Crystals Amorphous Sediment Other Sediment Urine Bacteria (None) Fatty Casts Hyaline Casts Fine Granular Casts Coarse Granular Casts Waxy Casts RBC Casts WBC Casts Other Casts Urine Starch Urine Mucus Urine Trichomonas Urine Yeast Urine HCG, Qual (Negative) 07/08/23 07/08/23 07/08/23 Range/Units 07:00 07:00 07:00 WBC (4.50-11.00) K/uL RBC (4.00-5.20) m/uL Hgb (12.0-16.0) gm/dL Hct (33.0-51.0) % MCV (80-100) fL MCH (26-34) pg MCHC (32-36) gm/dL RDW Coeff of [place] (11.5-15.5) % Plt Count (140-440) K/uL Neut % (Auto) (42.0-72.0) % Lymph % (Auto) (20-44) % [place] % (Auto) (0.0-11.0) % Eos % (Auto) (0.0-7.0) % Baso % (Auto) (0.0-3.0) % Neut # (Auto) (1.7-7.0) K/uL Lymph # (Auto) (0.90-2.90) K/uL [place] # (Auto) (0.00-0.90) K/UL Eos # (Auto) (0.00-0.50) K/uL Baso # (Auto) (0.00-0.30) K/uL Abs Immat Gran (auto) (0.00-0.30) K/uL Imm/Tot Granulo (auto) % Sodium (135-149) mmol/L Potassium (3.6-5.1) mmol/L Chloride (96-114) mmol/L Carbon Dioxide (20-32) mmol/L Anion Gap (7-15) mEq/L BUN (5-24) mg/dL Creatinine (0.5-1.5) mg/dL Estimated Creat Clear Estimated GFR ml/min Glucose (60-115) mg/dL Lactate (0.5-1.9) mmol/L Calcium (8.4-10.6) mg/dL Total Bilirubin (0.1-1.5) mg/dL AST (12-35) U/L ALT (4-35) U/L Alkaline Phosphatase (40-150) U/L C-Reactive Protein (0.5-1.0) mg/dL Total Protein (6.0-8.3) g/dL Albumin (3.3-5.0) g/dL Lipase (23-300) U/L Urine Color (Yellow) Urine Appearance (Clear) Urine pH (5.0-8.5) Ur Specific [place] (1.000-1.030) Urine Protein (Negative) Urine Glucose (UA) (Negative) Urine Ketones (Negative) Urine Blood (Negative) Urine Nitrite (Negative) Urine Bilirubin (Negative) Urine Urobilinogen (0.2-1.0) Ur Leukocyte Esterase Cancelled (Negative) Urine RBC 50-100 A Cancelled (0-2) Urine WBC 0-2 Cancelled (0-5) Urine WBC Clumps Cancelled Ur Squamous Epith Cells Moderate A (None-Few) [place] Biurate Crystals Calcium Carbonate Cryst Calcium Phosphate Cryst Calcium Oxalate Crystal Cystine Crystals Uric Acid Crystals Triple Phos Crystals Sulfur Crystals Cholesterol Crystals Tyrosine Crystals Hippuric Acid Crystals Amorphous Sediment Other Sediment Urine Bacteria (None) Fatty Casts Hyaline Casts Fine Granular Casts Coarse Granular Casts Waxy Casts RBC Casts WBC Casts Other Casts Urine Starch Urine Mucus Urine Trichomonas Urine Yeast Urine HCG, Qual (Negative) 07/08/23 07/08/23 07/08/23 Range/Units 07:00 07:00 07:25 WBC 11.68 H (4.50-11.00) K/uL RBC 4.61 (4.00-5.20) m/uL Hgb 12.7 (12.0-16.0) gm/dL Hct 39.6 (33.0-51.0) % MCV 86 (80-100) fL MCH 28 (26-34) pg MCHC 32 (32-36) gm/dL RDW Coeff of [place]eli 13.3 (11.5-15.5) % Plt Count 379 (140-440) K/uL Neut % (Auto) 80.8 H (42.0-72.0) % Lymph % (Auto) 11.6 L (20-44) % [place] % (Auto) 6.4 (0.0-11.0) % Eos % (Auto) 0.7 (0.0-7.0) % Baso % (Auto) 0.3 (0.0-3.0) % Neut # (Auto) 9.40 H (1.7-7.0) K/uL Lymph # (Auto) 1.40 (0.90-2.90) K/uL [place] # (Auto) 0.70 (0.00-0.90) K/UL Eos # (Auto) 0.10 (0.00-0.50) K/uL Baso # (Auto) 0.00 (0.00-0.30) K/uL Abs Immat Gran (auto) 0.00 (0.00-0.30) K/uL Imm/Tot Granulo (auto) 0.2 % Sodium 138 (135-149) mmol/L Potassium 4.2 (3.6-5.1) mmol/L Chloride 107 (96-114) mmol/L Carbon Dioxide 24 (20-32) mmol/L Anion Gap 7 (7-15) mEq/L BUN 13 (5-24) mg/dL Creatinine 0.8 (0.5-1.5) mg/dL Estimated Creat Clear 104.67 Estimated GFR 102 ml/min Glucose 112 (60-115) mg/dL Lactate 0.9 (0.5-1.9) mmol/L Calcium 9.1 (8.4-10.6) mg/dL Total Bilirubin 1.0 (0.1-1.5) mg/dL AST 40 H (12-35) U/L ALT 20 (4-35) U/L Alkaline Phosphatase 69 (40-150) U/L C-Reactive Protein 1.3 H (0.5-1.0) mg/dL Total Protein 7.7 (6.0-8.3) g/dL Albumin 4.4 (3.3-5.0) g/dL Lipase 63 (23-300) U/L Urine Color (Yellow) Urine Appearance (Clear) Urine pH (5.0-8.5) Ur Specific [place] (1.000-1.030) Urine Protein (Negative) Urine Glucose (UA) (Negative) Urine Ketones (Negative) Urine Blood (Negative) Urine Nitrite (Negative) Urine Bilirubin (Negative) Urine Urobilinogen (0.2-1.0) Ur Leukocyte Esterase (Negative) Urine RBC (0-2) Urine WBC (0-5) Urine WBC Clumps Ur Squamous Epith Cells Cancelled (None-Few) [place] Biurate Crystals Cancelled Calcium Carbonate Cryst Cancelled Calcium Phosphate Cryst Cancelled Calcium Oxalate Crystal Cancelled Cystine Crystals Cancelled Uric Acid Crystals Cancelled Triple Phos Crystals Cancelled Sulfur Crystals Cancelled Cholesterol Crystals Cancelled Tyrosine Crystals Cancelled Hippuric Acid Crystals Cancelled Amorphous Sediment Cancelled Other Sediment Cancelled Urine Bacteria Few A Cancelled (None) Fatty Casts Cancelled Hyaline Casts Cancelled Fine Granular Casts Cancelled Coarse Granular Casts Cancelled Waxy Casts Cancelled RBC Casts Cancelled WBC Casts Cancelled Other Casts Cancelled Urine Starch Cancelled Urine Mucus Cancelled Urine Trichomonas Cancelled Urine Yeast Cancelled Urine HCG, Qual Negative (Negative) <Jennifer Garza MD - Last Filed: 07/08/23 09:45> Imaging Data CT scan - abdomen: Attestation: I have reviewed the pertinent imaging results. <Jnenifer Rod MD - Last Filed: 07/08/23 09:45> Radiologist's impression: Patient: LAVONNE AVILA Facility:?[facility] Patient ID:?[id number] Site Patient ID:?[id number] Site :?[id number] Study:?CT Abdomen/Pelvis W/ 110CC ISOVUE 370-07/08/2023 7:57:37 AM Ordering Physician:JONAS Final Report: INDICATION: Right lower quadrant abdominal pain COMPARISON: None TECHNIQUE: CT examination of the abdomen and pelvis was performed following the uneventful intravenous administration of 110 cc of Isovue 370. Thin section axial images were obtained from the lung bases through the pubic symphysis. Oral contrast was not administered. Please note that all CT scans at this facility use dose modulation, iterative reconstruction, and/or weight-based dosing when appropriate to reduce radiation dose to as low as reasonably achievable. FINDINGS: LUNG BASES: The lung bases as visualized appear normal.The heart size is normal at the lung bases. LIVER/BILIARY SYSTEM:The liver is normal in size and configuration. There is no focal mass and there is no intra- or extra hepatic biliary ductal dilatation.Hepatic steatosis. Normal-appearing gallbladder ADRENALS: Normal KIDNEYS, URETERS and BLADDER:Normal-sized kidneys. No intrarenal calculi. No hydronephrosis or hydroureter. Pelvic calcifications are noted bilaterally. They are probably phleboliths. There is a solitary on the right that is very near the ureter. This measures about 2.5 millimeters. While I do not believe this is in the ureter, correlate with urinalysis. SPLEEN:Normal appearance. PANCREAS: Appears normal. RETROPERITONEUM and MESENTERY: There is no mass, adenopathy or aortic aneurysm. GASTROINTESTINAL SYSTEM: There is no evidence of diverticulitis, colitis, mechanical obstruction, or appendicitis. The small bowel as visualized appears normal.The appendix is well seen and appears normal. PELVIS: No mass, adenopathy or free fluid.No adnexal mass OSSEOUS STRUCTURES and ABDOMINAL WALL: There is an age-appropriate appearance of the osseous structures.No significant abdominal wall defect. OTHER: No free fluid or free air. IMPRESSION: 1. Pelvic calcifications probably phleboliths. There is a 2.5 millimeter calcification in the right pelvis which is probably not within the as described above. 2. The appendix is well seen and appears normal. 3. No adnexal mass. 4. Hepatic steatosis Please note that all CT scans at this facility use dose modulation, iterative reconstruction, and/or weight-based dosing when appropriate to reduce radiation dose to as low as reasonably achievable. Dictated by Raymundo Cancino MD @ 07/08/2023 8:09:53 AM (Electronic Signature) <Jennifer Garza MD - Last Filed: 07/08/23 09:45> Discharge Plan Discharge Clinical Impression: Right lower quadrant abdominal pain <Esha Camargo MD - Last Filed: 07/11/23 23:57> Patient Disposition: Home, Self-Care <Esha Camargo MD - Last Filed: 07/11/23 23:57> Condition: Stable <Esha Camargo MD - Last Filed: 07/11/23 23:57> Instructions: Kidney Stones (ED), Renal Colic (ED) <sEha Camargo MD - Last Filed: 07/11/23 23:57> Additional Instructions: I do wonder if your current symptoms are coming from a potential small 2.5 mm kidney stone. We will have you try Toradol as needed for pain control, can supplement with extra Tylenol per bottle directions if needed. Follow up with her primary care provider within the next week for recheck. Return to the ER if your pain is uncontrolled, develops severe abdominal pain with any association of vomiting or fever. Do recommend pushing fluids in the interim. <Esha Camargo MD - Last Filed: 07/11/23 23:57> Activity Level: Activity as Tolerated <Esha Camargo MD - Last Filed: 07/11/23 23:57> Activity as Tolerated <Jennifer Garza MD - Last Filed: 07/08/23 09:45> Prescriptions: New ketorolac 10 mg tablet 10 mg PO Q6H PRN (Reason: pain) 5 Days Qty: 20 0RF No Action metformin 500 mg tablet extended release 24 hr 2,000 mg PO QPM naltrexone 50 mg tablet 25 mg PO QPM cabergoline 0.5 mg tablet 0.5 mg PO progesterone micronized 100 mg capsule 25 mg PO QAM Rx Instructions: off 7 days; repeat cycle <Esha Camargo MD - Last Filed: 07/11/23 23:57> Follow Up/Referrals: Provider,Not a Local [Primary Care Provider] - <Esha Camargo MD - Last Filed: 07/11/23 23:57> Stand Alone Forms: MyHealth Info Instructions <Esha Camargo MD - Last Filed: 07/11/23 23:57>
[2023-07-08 09:27] VITALS: BP 118/74; PULSE 82; RESP 18; O2SAT 100
== END 2023-07-08 10:11 | disposition home or self-care (01) ==
PROVIDERS: Emergency Provider Family Medicine
DX: R10.31 Right lower quadrant pain (principal)
CPT/HCPCS: 36415; 74177; 80053; 81001; 81025; 83605; 83690; 85025; 86140; 87086; 99284; Q9967